=== PATIENT | female | born 1995 | race Caucasian/White ===

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

== ENCOUNTER 2017-03-24 21:09 | Emergency (ER) | payer MEDICAID ==
--- NOTE | 2017-03-24 22:14 | RADIOLOGY REPORT (SQ) ---
EXAM DESCRIPTION: FINGER LEFT COMPLETED DATE/TIME: 03/24/2017 9:47 pm REASON FOR STUDY: PAIN COMPARISON: None. NUMBER OF VIEWS: Three views. TECHNIQUE: AP, lateral, and oblique images acquired of the left fingers LIMITATIONS: None. FINDINGS: MINERALIZATION: Normal. BONES: No acute fracture or dislocation. No worrisome bone lesions. SOFT TISSUES: No soft tissue swelling. No foreign body. OTHER: No other significant finding. IMPRESSION: NO RADIOGRAPHIC EVIDENCE OF ACUTE INJURY. COMMENT: SITE OF TRAUMA/COMPLAINT MARKED/STAMP COMPLETED: No TECHNICAL DOCUMENTATION: JOB ID: [id number] [employer]- All Rights Reserved
--- NOTE | 2017-03-24 22:47 | ER Document Report ---
ED Hand/Wrist Injury - General Chief Complaint: Finger Injury Stated Complaint: LEFT FINGER PAIN Time Seen by Provider: 03/24/17 22:46 Notes: Patient is a 21-year-old female, right-handed, works at [employer], presents after she was hammering and hit the dorsal part of her left fifth finger. She noticed swelling. Denies open wounds or any other injuries. TRAVEL OUTSIDE OF THE [place] IN LAST 30 DAYS: No - Related Data Allergies/Adverse Reactions: No Known Allergies Allergy (Verified 10/03/16 06:44) Past Medical History - General Information source: Patient - Social History Smoking Status: Unknown if Ever Smoked Family History: None Patient has suicidal ideation: No Patient has homicidal ideation: No Pulmonary Medical History: Denies: Hx Asthma Renal/ Medical History: Denies: Hx Peritoneal Dialysis Traumatic Medical History: Reports: Hx Fractures - Immunizations Immunizations up to date: Yes Hx Diphtheria, Pertussis, Tetanus Vaccination: Yes Hx Pneumococcal Vaccination: 10/20/10 Review of Systems - Review of Systems Constitutional: denies: Chills, Fever Respiratory: denies: Cough, Short of breath Gastrointestinal: denies: Abdominal pain, Vomiting Skin: denies: Lesions, Rash Hematologic/Lymphatic: denies: Anemia, Easy bleeding Neurological/Psychological: denies: Paralysis, Numbness Physical Exam - Vital signs Vitals: Temp Pulse Resp BP Pulse Ox 98.2 F 88 16 154/65 H 98 03/24/17 21:14 03/24/17 21:14 03/24/17 21:14 03/24/17 21:14 03/24/17 21:14 - Notes Notes: PHYSICAL EXAMINATION: GENERAL: Well-appearing, well-nourished and in no acute distress. HEAD: Atraumatic, normocephalic. EYES: Pupils equal round and reactive to light, extraocular movements intact, sclera anicteric, conjunctiva are normal. ENT: nares patent, oropharynx clear without exudates. Moist mucous membranes. NECK: Normal range of motion, supple without lymphadenopathy LUNGS: Breath sounds clear to auscultation bilaterally and equal. No wheezes rales or rhonchi. HEART: Regular rate and rhythm without murmurs ABDOMEN: Soft, nontender, normoactive bowel sounds. No guarding, no rebound. No masses appreciated. EXTREMITIES: Mild swelling and tenderness over left dorsal surface of pinky finger, brisk capillary refill. Normal range of motion, no pitting or edema. No cyanosis. NEUROLOGICAL: Cranial nerves grossly intact. Normal speech, normal gait. Normal sensory and motor exams. PSYCH: Normal mood, normal affect. SKIN: Warm, Dry, normal turgor, no rashes or lesions noted. Course - Re-evaluation Re-evalutation: X-ray does not show any acute fractures. Given contusion instructions and she understands. - Vital Signs Vital signs: Temp Pulse Resp BP Pulse Ox 98.2 F 64 20 117/66 100 03/24/17 21:14 03/24/17 22:59 03/24/17 22:59 03/24/17 22:59 03/24/17 22:59 Discharge - Discharge Clinical Impression: Finger contusion Qualifiers: Encounter type: initial encounter Finger: little finger Damage to nail status: without damage Laterality: left Qualified Code(s): S60.052A - Contusion of left little finger without damage to nail, initial encounter Condition: Good Disposition: HOME, SELF-CARE Additional Instructions: Contusion Your injury has resulted in a contusion -- a crushing of the deep tissues. No injury to important structures was detected during the physician's exam. Contusions vary in the amount of pain they cause, and in the length of time required for healing. Typically, the area will become bruised, and will remain painful to touch for two or three weeks. However, most patients are back to working and playing within a few days. After the initial period of rest and cold-packs, your symptoms (together with the doctor's recommendations) will determine how rapidly you can get back to full activity. Usually this means "do what feels okay, but don't do things that hurt." If re-examination was recommended, it's important to follow up as instructed. Call the doctor or return any time if pain increases, if swelling becomes severe, if you develop numbness or weakness in an injured extremity, or if any other alarming symptoms occur.
[2017-03-24 23:02] VITALS: BP 117/66
== END 2017-03-24 23:02 | disposition home or self-care (01) ==
LOC: ER 21:09
DX: S60.052A Contusion of left little finger without damage to nail, initial encounter (principal); W27.8XXA Contact with other nonpowered hand tool, initial encounter; Y93.89 Activity, other specified
CPT/HCPCS: 99283

== ENCOUNTER 2017-10-08 21:52 | Emergency (ER) | payer MEDICAID ==
[2017-10-08 23:51] LABS: ABSOLUTE EOSINOPHILS # (AUTO) 0.1 10^3/uL (0.0-0.6); ABSOLUTE LYMPHOCYTES (AUTO) 2.3 10^3/uL (0.5-4.7); ABSOLUTE NEUT (AUTO) 5.6 10^3/uL (1.7-8.2); BASOPHILS % (AUTO) 0.3 % (0-2); HEMATOCRIT 34.3 % (36.0-47.0); HGB HCT DIFFERENCE 1.7; LYMPHOCYTES % (AUTO) 25.8 % (13-45); MEAN CORPUSCULAR HEMOGLOBIN 29.3 pg (27.0-33.4); MEAN CORPUSCULAR HGB CONC 34.9 g/dL (32.0-36.0); MEAN CORPUSCULAR VOLUME 84 fl (80-97); MONOCYTES % (AUTO) 11.2 % (3-13); RED BLOOD COUNT 4.08 10^6/uL (3.72-5.28); RED CELL DISTRIBUTION WIDTH 13.3 % (11.5-14.0); SEGMENTED NEUTROPHILS % (AUTO) 61.7 % (42-78); WHITE BLOOD COUNT 9.1 10^3/uL (4.0-10.5)
[2017-10-08 23:53] LABS: APPEARANCE,URINE CLEAR; BILIRUBIN,URINE NEGATIVE (NEGATIVE); GLUCOSE, URINE NEGATIVE (NEGATIVE); KETONES,URINE NEGATIVE (NEGATIVE); LEUKOCYTE ESTERASE,URINE NEGATIVE (NEGATIVE); NITRITE,URINE NEGATIVE (NEGATIVE); PROTEIN,URINE NEGATIVE (NEGATIVE); URINE SPECIFIC GRAVITY 1.016; UROBILINOGEN,URINE NEGATIVE mg/dL (<2.0)
--- NOTE | 2017-10-09 01:28 | ER Document Report ---
ED General - General Chief Complaint: Vag Bleeding, +preg <12wks Stated Complaint: VAGINAL BLEEDING Time Seen by Provider: 10/09/17 01:15 Notes: Patient is a 21-year-old at 13 weeks by LMP who presents with 24 hours of vaginal bleeding as well as lower abdominal cramping. The pain in her lower abdomen is described as an intermittent, cramping, moderate discomfort. Nothing improves or worsens the pain. She denies any history of similar pain during this but notes that she has had intermittent vaginal spotting throughout the duration of this . She states when she was living [place] a different [place] she had an ultrasound performed at 7 weeks that showed an abnormal gestational sac and she was informed that this may be an abnormal . However she has not yet had a follow-up to that ultrasound. She has not followed up with her [employer]ANT [employer] regarding today's concerns. She denies any fever or constitutional symptoms TRAVEL OUTSIDE OF THE [place] IN LAST 30 DAYS: No - Related Data Allergies/Adverse Reactions: No Known Allergies Allergy (Verified 10/03/16 06:44) Past Medical History - General Information source: Patient - Social History Smoking Status: Never Smoker Frequency of alcohol use: None Drug Abuse: None Family History: Reviewed & Not Pertinent Pulmonary Medical History: Denies: Hx Asthma Renal/ Medical History: Denies: Hx Peritoneal Dialysis Traumatic Medical History: Reports: Hx Fractures - Immunizations Immunizations up to date: Yes Hx Diphtheria, Pertussis, Tetanus Vaccination: Yes Hx Pneumococcal Vaccination: 10/20/10 Review of Systems - Review of Systems Notes: Constitutional: Negative for fever. HENT: Negative for sore throat. Eyes: Negative for visual changes. Cardiovascular: Negative for chest pain. Respiratory: Negative for shortness of breath. Gastrointestinal: Positive for lower abdominal pain Genitourinary: Positive for vaginal bleeding Musculoskeletal: Negative for back pain. Skin: Negative for rash. Neurological: Negative for headaches, weakness or numbness. 10 point ROS negative except as marked above and in HPI. Physical Exam - Vital signs Vitals: Temp Pulse BP Pulse Ox 98.8 F 78 133/64 H 100 10/08/17 22:03 10/08/17 22:03 10/08/17 22:03 10/08/17 22:03 Interpretation: Normal Notes: PHYSICAL EXAMINATION: GENERAL: Well-appearing, well-nourished and in no acute distress. HEAD: Atraumatic, normocephalic. EYES: Pupils equal round and reactive to light, extraocular movements intact, sclera anicteric, conjunctiva are normal. ENT: nares patent, oropharynx clear without exudates. Moist mucous membranes. NECK: Normal range of motion, supple without lymphadenopathy LUNGS: Breath sounds clear to auscultation bilaterally and equal. No wheezes rales or rhonchi. HEART: Regular rate and rhythm without murmurs ABDOMEN: Soft, nontender, normoactive bowel sounds. No guarding, no rebound. No masses appreciated. EXTREMITIES: Normal range of motion, no pitting or edema. No cyanosis. NEUROLOGICAL: No focal neurological deficits. Moves all extremities spontaneously and on command. PSYCH: Normal mood, normal affect. SKIN: Warm, Dry, normal turgor, no rashes or lesions noted. Course - Re-evaluation Re-evalutation: 10/09/17 01:27 Patient presents with vaginal bleeding in the setting of a possible although apparently has had an ultrasound that showed an abnormal gestational sac. On a trans-abdominal ultrasound the bedside I am unable to visualize any evidence of an intrauterine gestation at this time although there is some blood inside the uterus and the uterus appears larger than would be expected for a non individual. I suspect that the patient is having an ongoing spontaneous . Will send for formal transvaginal ultrasound and reassess 10/09/17 03:23 Transvaginal ultrasound is also unable to visualize any evidence of an intrauterine and patient's hCG level is only 16. This is consistent with demise and missed . I have informed the patient of these findings and of instructed that she will need to follow-up in the women's clinic for recheck her hCG and likely repeat ultrasound in the next 48 hours. She no longer has any additional vaginal bleeding. No abdominal pain. At this time will discharge with return precautions and follow-up recommendations. Verbal discharge instructions given a the bedside and opportunity for questions given. Medication warnings reviewed. Patient is in agreement with this plan and has verbalized understanding of return precautions and the need for primary care follow-up in the next 24-72 hours. - Vital Signs Vital signs: Temp Pulse Resp BP Pulse Ox 98.8 F 78 133/64 H 100 10/08/17 22:03 10/08/17 22:03 10/08/17 22:03 10/08/17 22:03 - Laboratory Result Diagrams: 10/08/17 23:20 Laboratory results interpreted by me: 10/08/17 10/08/17 10/08/17 23:20 23:20 23:25 Hct 34.3 L Beta HCG, Quant 16.25 H Urine Blood LARGE H - Diagnostic Test Radiology reviewed: Reports reviewed Discharge - Discharge Clinical Impression: Spontaneous , Vaginal bleeding Condition: Good Disposition: HOME, SELF-CARE Additional Instructions: You need to return to the ED or the women's health clinic in 48 hours for a recheck of your hormone level. The ultrasound and you labs suggest that you have likely had a spontaneous miscarriage. Please return if you develop severe abdominal pain, bleeding that goes through more than 2 pads for more than 2 hours, pass out, or have any other symptoms that are concerning to you. Please follow-up closely with your OBGYN regarding todays visit. Referrals: VENU ROCK MD [ACTIVE STAFF] - 10/10/17
[2017-10-09 01:40] LABS: ADD ON TESTING BLD IN LAB ACKNOWLEDGE
--- NOTE | 2017-10-09 02:57 | RADIOLOGY REPORT (SQ) ---
EXAM DESCRIPTION: U/S OB TRANSVAGINAL W/O DOP CLINICAL HISTORY: 21 years, Female, No visualized IUP on bedside ultrasound COMPARISON: None. TECHNIQUE: Transvaginal. LIMITATIONS: None. FINDINGS: No intrauterine gestation is identified. There is heterogeneous thickening of the endometrial cavity measuring 2.3 cm with minimal vascularity on color Doppler sonogram. 4.9 cm left ovary contains a 4.5 cm complex cystic component. Vascularity of the left ovary is demonstrated. Right ovary is not visualized. No significant free fluid. No significant free fluid. IMPRESSION: No viable intrauterine gestation is identified. Complex 4.5 cm cystic component of the left ovary may indicate a complex corpus luteal cyst. Differential diagnosis includes occult early viable gestation, or gestational loss with retained products of conception. Cannot exclude ectopic gestation or 4.5 cm left adnexal neoplasm/endometrioma. Consider laboratory/sonographic surveillance within 48 to 72 hours. [employer]- All Rights Reserved
[2017-10-09 04:13] VITALS: BP 121/75
== END 2017-10-09 04:12 | disposition home or self-care (01) ==
LOC: ER 21:52
DX: O03.9 Complete or unspecified spontaneous abortion without complication (principal)
CPT/HCPCS: 99284; 86900; 86901; 36415; 86850; 84702; 85025; 81001; 76817; J2790

== ENCOUNTER 2018-03-25 13:06 | Emergency (ER) | payer MEDICAID ==
--- NOTE | 2018-03-25 14:17 | ER Document Report ---
ED ENT - General Chief Complaint: Flu Symptoms Stated Complaint: FEVER Time Seen by Provider: 03/25/18 13:48 Mode of Arrival: Ambulatory Information source: Patient Notes: 22-year-old female presents to ED for complaint of body aches fever and right wrist pain and swelling with a bruise times a week. She states that the fever was 5 days ago but she had a sore throat since then. She states she has a runny nose and it is becoming more difficult to swallow. TRAVEL OUTSIDE OF THE [place] IN LAST 30 DAYS: No - HPI Patient complains to provider of: Nose problem, Throat problem Onset: Last week Onset/Duration: Gradual, Worse Quality of pain: Achy Severity: Moderate Pain Level: 4 Context: Recent Illness Location of pain: Nose, Sinus, Throat Associated symptoms: Fever - last week, Runny nose, Sinus pain, Sinus drainage, Sore throat Similar symptoms previously: Yes Recently seen / treated by doctor: No - Related Data Allergies/Adverse Reactions: No Known Allergies Allergy (Verified 03/25/18 13:07) Past Medical History - General Information source: Patient - Social History Smoking Status: Never Smoker Cigarette use (# per day): No Chew tobacco use (# tins/day): No Smoking Education Provided: No Frequency of alcohol use: None Drug Abuse: None Occupation: student Lives with: Parents Family History: Reviewed & Not Pertinent Patient has suicidal ideation: No Patient has homicidal ideation: No - Past Medical History Cardiac Medical History: Reports: None Pulmonary Medical History: Reports: None EENT Medical History: Reports: None Neurological Medical History: Reports: None Endocrine Medical History: Reports: None Renal/ Medical History: Reports: None Malignancy Medical History: Reports: None GI Medical History: Reports: None Musculoskeltal Medical History: Reports None Skin Medical History: Reports None Psychiatric Medical History: Reports: None Traumatic Medical History: Reports: Hx Fractures Infectious Medical History: Reports: None Surgical Hx: Negative Past Surgical History: Reports: None - Immunizations Immunizations up to date: Yes Hx Diphtheria, Pertussis, Tetanus Vaccination: Yes Hx Pneumococcal Vaccination: 10/20/10 Review of Systems - Review of Systems Constitutional: Recent illness EENT: No symptoms reported, Nose pain, Nose discharge, Sinus discharge, Throat pain Cardiovascular: No symptoms reported Respiratory: Cough Gastrointestinal: No symptoms reported Genitourinary: No symptoms reported Female Genitourinary: No symptoms reported Musculoskeletal: No symptoms reported Skin: No symptoms reported Hematologic/Lymphatic: No symptoms reported Neurological/Psychological: No symptoms reported -: Yes All other systems reviewed and negative Physical Exam - Vital signs Vitals: Temp Pulse Resp BP Pulse Ox 99.3 F 94 16 138/81 H 99 03/25/18 13:10 03/25/18 13:10 03/25/18 13:10 03/25/18 13:10 03/25/18 13:10 Interpretation: Normal - General General appearance: Appears well, Alert - HEENT Head: Normocephalic, Atraumatic Eyes: Normal Pupils: PERRL Ears: Normal External canal: Normal Tympanic membrane: Normal Sinus: Normal Nasal: Purulent discharge, Swelling Mouth/Lips: Normal Mucous membranes: Normal Pharynx: Erythema, Post nasal drainage, Tonsillar hypertrophy Neck: Anterior cervical chain - Respiratory Respiratory status: No respiratory distress Chest status: Nontender Breath sounds: Nonproductive cough Chest palpation: Normal - Cardiovascular Rhythm: Regular Heart sounds: Normal auscultation Murmur: No - Abdominal Inspection: Normal Distension: No distension Bowel sounds: Normal Tenderness: Nontender Organomegaly: No organomegaly - Back Back: Normal, Nontender - Extremities General upper extremity: Normal inspection, Nontender, Normal color, Normal ROM , Normal temperature General lower extremity: Normal inspection, Nontender, Normal color, Normal ROM , Normal temperature, Normal weight bearing. No: Colby's sign - Neurological Neuro grossly intact: Yes Cognition: Normal Orientation: AAOx4 [place] Coma Scale Eye Opening: Spontaneous Mike Coma Scale Verbal: Oriented Mike Coma Scale Motor: Obeys Commands [place] Coma Scale Total: 15 Speech: Normal Motor strength normal: LUE, RUE, LLE, RLE Sensory: Normal - Psychological Associated symptoms: Normal affect, Normal mood - Skin Skin Temperature: Warm Skin Moisture: Dry Skin Color: Normal Course - Re-evaluation Re-evalutation: 03/25/18 15:21 This young lady was positive for strep. She was treated with penicillin G IM and Decadron for her swollen painful throat. Patient was discharged home to follow-up with her primary doctor. She states she gets frequent strep throat I explained to her that she need to find out up with her primary doctor and have him get a referral for a ENT. - Vital Signs Vital signs: Temp Pulse Resp BP Pulse Ox 99.3 F 94 16 138/81 H 99 03/25/18 13:10 03/25/18 13:10 03/25/18 13:10 03/25/18 13:10 03/25/18 13:10 Discharge - Discharge Clinical Impression: Strep pharyngitis Condition: Stable Disposition: HOME, SELF-CARE Additional Instructions: STREP THROAT: Your sore throat is due to the streptococcus germ (strep throat). Strep throat usually makes you feel quite ill with fever and aches, headache, swollen sore throat, and tender bumps under the angles of the jaw. Strep throat requires antibiotic treatment. Although the sore throat may go away by itself, complications such as rheumatic fever, kidney disease, or throat abscess can occur. We usually prescribe antibiotics by mouth. Be sure to take the medicine until it's gone. If you stop early, the strep may come back. If you are vomiting, are severely ill, or can't remember to take pills, we can give you an antibiotic shot. Take acetaminophen or ibuprofen for pain and fever. Sip frequent clear liquids, or use popsicles or ice chips. Anesthetic sprays or lozenges may help. Make sure the air in the room is not too dry. Avoid using decongestants or antihistamines. Call the doctor if there is no improvement in three days, or if you have difficulty breathing, increasing throat pain, high fever, rash, or frequent vomiting. Penicillins The antibiotic you have received is a member of the penicillin family. This is a very useful class of antibiotics. The particular type of antibiotic chosen for you was determined by the nature of your problem. Penicillins are absorbed best when taken on an empty stomach, and should be taken either a half hour before or two hours after a meal. Some newer medicines of the penicillin class are better taken with food -- if this is the case, the pharmacist will label the medicine to alert you. Penicillins usually have no side effects. However, allergy to penicillins is common. If you have had an allergic reaction to any drug of the penicillin family, you should never take any other penicillin. Notify your doctor at once if you develop hives, itching, swelling, faintness, or shortness of breath. Less serious side effects can include nausea or diarrhea. STEROID MEDICATION: You have been given a medicine of the cortisone/steroid class. This medication is used to control inflammation or allergy. It is usually only given for a short period of time, until the acute process subsides. There are usually no side effects from short-term use of cortisone-like medications. Some persons feel an increased sense of well-being and are not sleepy at bedtime. Long-term use of cortisone medications is best avoided, unless required for a severe condition. If your condition does not remit, or relapses after the course of corticosteroid medication, you should consult your physician. FOLLOW-UP CARE: If you have been referred to a physician for follow-up care, call the physician s office for an appointment as you were instructed or within the next two days. If you experience worsening or a significant change in your symptoms, notify the physician immediately or return to the Emergency Department at any time for re-evaluation. Forms: Elevated Blood Pressure, Return to School Referrals: CATHY SCHULTZ MD [Primary Care Provider] - Follow up as needed
[2018-03-25] MEDS ORDERED: DEXAMETHASONE SOD PHOS INJ 10 MG/1 ML VIAL IM ONE (14:58)
[2018-03-25] MEDS ORDERED: PENICILLIN G BENZATHINE 1.2 MILLION UNIT/2 ML DISP.SYRIN IM ONE (14:58)
[2018-03-25 15:54] VITALS: BP 132/87
== END 2018-03-25 15:54 | disposition home or self-care (01) ==
LOC: ER 13:06
DX: J02.0 Streptococcal pharyngitis (principal); R50.9 Fever, unspecified; M79.1 Myalgia; M25.531 Pain in right wrist
CPT/HCPCS: 99283; 96372; 36415; 87880; 86308; J0561; J1100

== ENCOUNTER 2018-06-24 06:35 | Day surgery (SDC) | payer MEDICAID ==
[2018-06-24] MEDS ORDERED: BUPIVACAINE HCL 0.5%/EPI 1:200000 INJ 1.8 ML CARTRIDGE ONE (07:08)
[2018-06-24] MEDS ORDERED: OXYMETAZOLINE HCL 0.05% NASAL SPRAY 15 ML BOTTLE ONE (07:09)
[2018-06-24] MEDS ORDERED: ONDANSETRON HCL INJ/PF 4 MG/2 ML SDV ONE (07:16)
[2018-06-24] MEDS ORDERED: HYDROMORPHONE HCL INJ/PF 2 MG/ML AMPULE ONE (07:17)
[2018-06-24] MEDS ORDERED: FENTANYL CITRATE INJ/PF 100 MCG/2 ML AMPUL ONE (07:17)
[2018-06-24] MEDS ORDERED: MIDAZOLAM 2 MG/2 ML INJ ONE (07:17)
[2018-06-24] MEDS ORDERED: PROPOFOL INJ 200 MG/20 ML VIAL IV ONE (07:17)
[2018-06-24] MEDS ORDERED: DEXAMETHASONE SOD PHOS INJ 10 MG/1 ML VIAL ONE (07:17)
[2018-06-24] MEDS ORDERED: SUCCINYLCHOLINE CHLORIDE INJ 200 MG/10 ML VIAL ONE (07:18)
[2018-06-24] MEDS ORDERED: ACETAMINOPHEN 1,000 MG/100 ML RTUPB IV ONE (07:18)
--- NOTE | 2018-06-25 11:01 | SURGICARE OPERATIVE REPORT E ---
[facility] Operative Report NAME: OREN VANN AGE: 22Y DATE OF SURGERY: 06/24/2018 ROOM: PREOPERATIVE DIAGNOSES: 1. ACUTE RECURRENT TONSILLITIS. 2. CHRONIC TONSILLITIS. 3. BILATERAL TONSILLAR HYPERTROPHY. POSTOPERATIVE DIAGNOSES: 1. ACUTE RECURRENT TONSILLITIS. 2. CHRONIC TONSILLITIS. 3. BILATERAL TONSILLAR HYPERTROPHY. OPERATION PERFORMED: Bilateral tonsillectomy. Patient age greater than 12. SURGEON: RENY ALEMAN D.O. ANESTHETIC: General endotracheal tube. ANESTHESIA STAFF: Todd Zhong CRNA ESTIMATED BLOOD LOSS: 10 mL. IV FLUIDS: 800 mL. COMPLICATIONS: None. DRAINS: None. SPONGE COUNT: Verified. MATERIALS FORWARDED SPECIMEN: Left and right tonsillar tissue. FINDINGS: 1. The tonsils were noted to be 2 to 3+ in size, were cryptic in appearance, and were with tonsillar debris present bilateral. 2. The soft palatal tissues were redundant in nature and the uvula was unremarkable in appearance. INDICATIONS: This is a 22-year-old female patient who was seen and evaluated in the [facility] office. The patient had been referred for and she complained of a history of acute recurrent tonsillitis episodes occurring throughout each year, treated with antibiotics. These episodes have been occurring each year over the years. With the episodes, the patient experiences significant sore throat, discomfort, and poor p.o. intake. The patient also has a history of symptoms consistent with chronic tonsillitis over the years with history consistent with keratosis pharyngeus. Clinically, the patient is also noted to have tonsillar hypertrophy and she notes that when she has an acute tonsillitis episode, that her tonsils significantly swell and are problematic. After extensive discussion with the patient, recommendation and plan was to proceed with a tonsillectomy. The procedure and all of its risks and complications were all discussed in detail with the patient. She voiced an understanding of the described surgical plan, agreed to proceed, and consent was obtained. PROCEDURE: The patient was taken to the main operating room and placed on the operating room table in the supine position. Appropriate monitors were placed. Using mask and IV access, general anesthesia was induced. The patient was next transorally intubated without difficulty. The patient was rotated 90 degrees and positioned for tonsil surgery. The patient's lips, teeth, tongue and inside of the mouth were inspected and noted to be without defects. There was a mouth gag inserted. It was opened, and the patient was placed into suspension. There was a soft catheter placed through the patient's nose that was used to suspend the soft palate. Findings are as noted above. At this point, the plasma J-Hook device was used to dissect and remove tonsillar tissue on each side. This device was also used to provide adequate hemostasis. Saline irritation was performed and suctioned. There was adequate hemostasis noted. The soft catheter was next released and removed from the patient's nose. The mouth gag was removed from the patient's mouth without difficulty. There was no damage to the lips, teeth, tongue, gums, or inside of the mouth. The patient was then returned to the anesthesia staff and was allowed to emerge from general anesthesia. The patient was extubated in the main operating room and was then transported to the post-anesthesia recovery unit in stable condition. There were no complications. DICTATING PHYSICIAN: RENY ALEMAN D.O. [id number] PHY#: [id number] ID: [id number] JOB#: [id number] ACCT: [id number] cc:RENY ALEMAN D.O. > MTDD
== END 2018-06-24 10:00 | disposition home or self-care (01) ==
LOC: SC 06:35
PROVIDERS: ATTEND Otolaryngology
DX: J35.1 Hypertrophy of tonsils (principal); J30.9 Allergic rhinitis, unspecified; J34.3 Hypertrophy of nasal turbinates; R06.83 Snoring
CPT/HCPCS: 36415; 86003 ×24; 82785; 88304 ×2; 42826; J2250; J3490; J3010; J1170; J0330; J2405; J2704; J1100; J0131; 170

== ENCOUNTER 2018-10-05 09:41 | Emergency (ER) | payer MEDICAID ==
[2018-10-05] MEDS ORDERED: ACETAMINOPHEN 325 MG TABLET PO ONE (10:02)
[2018-10-05] MEDS ORDERED: ONDANSETRON 4 MG TAB.RAPDIS PO ONE (10:02)
--- NOTE | 2018-10-05 10:03 | ER Document Report ---
ED General - General Chief Complaint: Abdominal Pain Stated Complaint: ABDOMINAL PAIN Time Seen by Provider: 10/05/18 09:54 Mode of Arrival: Ambulatory Information source: Patient Notes: 22-year-old female with history of chronic headaches presents with suprapubic abdominal cramping that started approximately 10 days prior to arrival. Patient describes it as intermittent, mild and not associated with dysuria, hematuria or vaginal discharge. Patient has had associated nausea and right- sided headache. Headache is described as throbbing, intermittent and not relieved with ibuprofen. Patient denies any head injury. Patient does report her last menstrual period as being 20 August 2018. Patient did take a home test 1 week ago which was negative. She does have a history of reported miscarriage 1 year ago. Patient is sexually active but states that she uses both condoms and control. Denies history of sexually transmitted disease. Patient has had recent negative, STD testing in June 2018. TRAVEL OUTSIDE OF THE [place] IN LAST 30 DAYS: No - HPI Onset: Last week Onset/Duration: Gradual, Intermittent, Persistent Quality of pain: Cramping Severity: Moderate Associated symptoms: Nausea. denies: Chills, Diarrhea, Fever, Vomiting, Shortness of breath Exacerbated by: Denies, Standing Similar symptoms previously: No Recently seen / treated by doctor: No - Related Data Allergies/Adverse Reactions: No Known Allergies Allergy (Verified 10/05/18 09:41) Past Medical History - General Information source: Patient, [facility] Records - Social History Smoking Status: Never Smoker Frequency of alcohol use: None Drug Abuse: None Lives with: Family Family History: Reviewed & Not Pertinent Patient has suicidal ideation: No Patient has homicidal ideation: No - Past Medical History Cardiac Medical History: Denies: Hx Heart Attack, Hx Hypertension Pulmonary Medical History: Denies: Hx Asthma Neurological Medical History: Denies: Hx Cerebrovascular Accident, Hx Seizures Renal/ Medical History: Denies: Hx Peritoneal Dialysis GI Medical History: Denies: Hx Hepatitis, Hx Hiatal Hernia, Hx Ulcer Traumatic Medical History: Reports: Hx Fractures Infectious Medical History: Denies: Hx Hepatitis Past Surgical History: Denies: Hx Mastectomy, Hx Open Heart Surgery, Hx Pacemaker - Immunizations Immunizations up to date: Yes Hx Diphtheria, Pertussis, Tetanus Vaccination: Yes Hx Pneumococcal Vaccination: 10/20/10 Review of Systems - Review of Systems Constitutional: denies: Chills, Fever, Weakness EENT: denies: Blurred vision Cardiovascular: denies: Chest pain, Palpitations, Dizziness Respiratory: denies: Cough, Short of breath Gastrointestinal: Abdominal pain, Nausea. denies: Vomiting, Constipation, Poor appetite, Poor fluid intake Genitourinary: denies: Dysuria, Discharge, Flank pain, Hematuria Female Genitourinary: Last menstrual period - 08-20-18. denies: Vaginal discharge, Vaginal bleeding, Painful intercourse Musculoskeletal: denies: Back pain Skin: denies: Rash Hematologic/Lymphatic: No symptoms reported Neurological/Psychological: Headaches. denies: Lost consciousness -: Yes All other systems reviewed and negative Physical Exam - Vital signs Vitals: Temp Pulse Resp BP Pulse Ox 98.3 F 88 20 132/71 H 100 10/05/18 09:45 10/05/18 09:45 10/05/18 09:45 10/05/18 09:45 10/05/18 09:45 Interpretation: Normal. No: Tachycardic, Febrile - Notes Notes: PHYSICAL EXAMINATION: GENERAL: Well-appearing, well-nourished and in no acute distress. HEAD: Atraumatic, normocephalic. EYES: Pupils equal round and reactive to light, extraocular movements intact, conjunctiva are normal. ENT: Nares patent, oropharynx clear without exudates. Moist mucous membranes. NECK: Normal range of motion, supple without lymphadenopathy LUNGS: Breath sounds clear to auscultation bilaterally and equal. No wheezes rales or rhonchi. HEART: Regular rate and rhythm without murmurs ABDOMEN: Soft, nontender, nondistended abdomen. No guarding, no rebound. No masses appreciated. No right lower quadrant or left lower quadrant tenderness with palpation. Female : Swabs obtained for wet mount, gonorrhea and chlamydia. Musculoskeletal: Normal range of motion, no pitting or edema. No cyanosis. NEUROLOGICAL: Cranial nerves grossly intact. Normal speech, normal gait. Normal sensory, motor exams PSYCH: Normal mood, normal affect. SKIN: Warm, Dry, normal turgor, no rashes or lesions noted. Course - Re-evaluation Re-evalutation: Laboratory 10/05/18 10/05/18 10/05/18 10:15 10:15 10:20 WBC 5.1 RBC 4.78 Hgb 13.8 Hct 40.7 MCV 85 MCH 29.0 MCHC 34.0 RDW 12.7 Plt Count 313 Seg Neutrophils % 63.8 Lymphocytes % 27.8 Monocytes % 7.1 Eosinophils % 1.1 Basophils % 0.2 Absolute Neutrophils 3.3 Absolute Lymphocytes 1.4 Absolute Monocytes 0.4 Absolute Eosinophils 0.1 Absolute Basophils 0.0 Sodium 142.0 Potassium 4.8 Chloride 106 Carbon Dioxide 26 Anion Gap 10 BUN 14 Creatinine 0.80 Est GFR ( Amer) > 60 Est GFR (Non-Af Amer) > 60 Glucose 97 Calcium 10.1 Total Bilirubin 0.7 Direct Bilirubin 0.4 Neonat Total Bilirubin Not Reportable Neonat Direct Bilirubin Not Reportable Neonat Indirect Bili Not Reportable AST 15 ALT 12 Alkaline Phosphatase 50 Total Protein 7.2 Albumin 4.4 Urine HCG, Qual NEGATIVE Trichomonas (Wet Prep) Vaginal WBC Vaginal RBC Vaginal Yeast 10/05/18 10:20 WBC RBC Hgb Hct MCV MCH MCHC RDW Plt Count Seg Neutrophils % Lymphocytes % Monocytes % Eosinophils % Basophils % Absolute Neutrophils Absolute Lymphocytes Absolute Monocytes Absolute Eosinophils Absolute Basophils Sodium Potassium Chloride Carbon Dioxide Anion Gap BUN Creatinine Est GFR ( Amer) Est GFR (Non-Af Amer) Glucose Calcium Total Bilirubin Direct Bilirubin Neonat Total Bilirubin Neonat Direct Bilirubin Neonat Indirect Bili AST ALT Alkaline Phosphatase Total Protein Albumin Urine HCG, Qual Trichomonas (Wet Prep) NO TRICHOMONAS SEEN Vaginal WBC RARE WBCS SEEN Vaginal RBC NO RBCS SEEN Vaginal Yeast NO YEAST SEEN Temp Pulse Resp BP Pulse Ox 98.3 F 88 20 132/71 H 100 10/05/18 09:45 10/05/18 09:45 10/05/18 09:45 10/05/18 09:45 10/05/18 09:45 10/05/18 11:00 22-year-old female presents with suprapubic abdominal pain that has been present for approximately 10 days. She has associated nausea and headache. Patient's vitals were reviewed upon arrival. She is afebrile, not tachycardic or hypoxic. She does not appear toxic or dehydrated. She is in no acute distress. Patient with a benign abdominal exam. Patient given Zofran and Tylenol for headache and nausea. Urine hCG negative. Patient does report that she recently started a new control pill which could be the reason for her irregular period this month. Patient reevaluated while waiting for urinalysis. She reports improvement of her headache and nausea. She is declining Toradol. 10/05/18 11:14 Patient reevaluated and is now complaining of return of abdominal cramping. Agrees to take Toradol. CBC, CMP unremarkable. Urinalysis not consistent with infection. HCG negative. Wet prep without abnormality. Gonorrhea and chlamydia negative. On reevaluation patient reports resolution of headache, abdominal pain. Reviewed lab findings with the patient. She was reassured. Cramping may be the onset of her period. Patient was evaluated and treated as appropriate for the patient's presenting symptoms and complaint, with consideration of any critical or life threatening conditions that may be associated with their obtained history and exam as noted above. All results were discussed with patient. Patient provided the opportunity to ask questions, and express concerns. Patient was educated on treatments based on their presumed diagnosis as noted above. At this time we will discharge the patient with return precautions and follow-up recommendations. Verbal discharge instructions given a the bedside. Medication warnings reviewed. Patient is in agreement with this plan and has verbalized understanding of return precautions. After careful consideration I feel that that patient can be safely discharged from the emergency department, they were advised to followup with a primary care physician in 2-3 days. Dictation on this chart was performed using voice recognition software and may result in unintended grammatical, spelling, syntax or errors. 10/05/18 19:33 10/05/18 19:37 - Vital Signs Vital signs: Temp Pulse Resp BP Pulse Ox 98.3 F 88 20 123/67 100 10/05/18 09:45 10/05/18 09:45 10/05/18 09:45 10/05/18 12:37 10/05/18 09:45 - Laboratory Result Diagrams: 10/05/18 10:15 10/05/18 10:15 Discharge - Discharge Clinical Impression: Abdominal cramping, Nausea Headache Qualifiers: Headache type: unspecified Headache chronicity pattern: unspecified pattern Intractability: not intractable Qualified Code(s): R51 - Headache Condition: Good Disposition: HOME, SELF-CARE Instructions: Abdominal Pain ([facility]), Headache ([facility]), Nausea or Vomiting, Nonspecific ([facility]), Observation for Appendicitis ([facility]) Additional Instructions: Your tests indicate that you are not , have a urinary tract infection or a sexually transmitted disease. This abnormal cramping and irregular periods could be due to your control. You have been prescribed Zofran for nausea. You have been seen in the Emergency Department (ED) for abdominal pain. Your evaluation did not identify a clear cause of your symptoms but was generally reassuring. Please follow up with your doctor as soon as possible regarding today's emergent visit and the symptoms that are bothering you. Return to the ED if your abdominal pain worsens or fails to improve, you develop bloody vomiting, bloody diarrhea, you are unable to tolerate fluids due to vomiting, fever greater than 101, or other symptoms that concern you. Prescriptions: Naproxen [Naprosyn] 500 mg PO BID PRN #15 tablet PRN Reason: Abdominal Cramping Ondansetron [Zofran Odt 4 mg Tablet] 1 tab PO Q6H PRN #15 tab.rapdis PRN Reason: For Nausea/Vomiting Forms: Elevated Blood Pressure Referrals: ANH STRONG FNP-C [Primary Care Provider] - Follow up in 3-5 days
[2018-10-05 10:44] LABS: ABSOLUTE EOSINOPHILS # (AUTO) 0.1 10^3/uL (0.0-0.6); ABSOLUTE LYMPHOCYTES (AUTO) 1.4 10^3/uL (0.5-4.7); ABSOLUTE MONOCYTES (AUTO) 0.4 10^3/uL (0.1-1.4); ABSOLUTE NEUT (AUTO) 3.3 10^3/uL (1.7-8.2); BASOPHILS % (AUTO) 0.2 % (0-2); EOSINOPHILS % (AUTO) 1.1 % (0-6); HEMATOCRIT 40.7 % (36.0-47.0); HEMOGLOBIN 13.8 g/dL (12.0-15.5); LYMPHOCYTES % (AUTO) 27.8 % (13-45); MEAN CORPUSCULAR VOLUME 85 fl (80-97); MONOCYTES % (AUTO) 7.1 % (3-13); PLATELET COUNT 313 10^3/uL (150-450); RED BLOOD COUNT 4.78 10^6/uL (3.72-5.28); RED CELL DISTRIBUTION WIDTH 12.7 % (11.5-14.0); SEGMENTED NEUTROPHILS % (AUTO) 63.8 % (42-78); TOTAL CELLS COUNTED % (AUTO) 100 %; WHITE BLOOD COUNT 5.1 10^3/uL (4.0-10.5)
[2018-10-05] MEDS ORDERED: KETOROLAC TROMETHAMINE 60 MG/2 ML SDV IM ONE (10:59)
[2018-10-05 11:06] LABS: T.VAGINALIS (WET MOUNT) NO TRICHOMONAS SEEN
[2018-10-05 11:07] LABS: ALANINE AMINOTRANSFERASE 12 U/L (9-52); ALBUMIN 4.4 g/dL (3.5-5.0); ALKALINE PHOSPHATASE 50 U/L (38-126); ANION GAP 10 (5-19); ASPARTATE AMINO TRANSFERASE 15 U/L (14-36); BILIRUBIN,DIRECT 0.4 mg/dL (0.0-0.4); BILIRUBIN,TOTAL 0.7 mg/dL (0.2-1.3); BLOOD UREA NITROGEN 14 mg/dL (7-20); CALCIUM 10.1 mg/dL (8.4-10.2); CARBON DIOXIDE 26 mmol/L (22-30); CHLORIDE 106 mmol/L (98-107); GLUCOSE 97 mg/dL (75-110); POTASSIUM 4.8 mmol/L (3.6-5.0); TOTAL PROTEIN 7.2 g/dL (6.3-8.2)
[2018-10-05 11:07] LABS: RBCS (WET MOUNT) NO RBCS SEEN; WBCS (WET MOUNT) RARE WBCS SEEN; YEAST (WET MOUNT) NO YEAST SEEN
[2018-10-05 12:26] LABS: CHLAM PCR NOT DETECTED (NOT DETECT); GON PCR NOT DETECTED (NOT DETECT)
[2018-10-05 12:27] LABS: APPEARANCE,URINE CLEAR; BILIRUBIN,URINE NEGATIVE (NEGATIVE); COLOR,URINE YELLOW; GLUCOSE, URINE NEGATIVE (NEGATIVE); KETONES,URINE NEGATIVE (NEGATIVE); LEUKOCYTE ESTERASE,URINE NEGATIVE (NEGATIVE); NITRITE,URINE NEGATIVE (NEGATIVE); PROTEIN,URINE NEGATIVE (NEGATIVE); URINE SPECIFIC GRAVITY 1.014; UROBILINOGEN,URINE NEGATIVE mg/dL (<2.0)
[2018-10-05 12:50] VITALS: BP 123/67
== END 2018-10-05 12:49 | disposition home or self-care (01) ==
LOC: ER 09:41
DX: R10.30 Lower abdominal pain, unspecified (principal); R51 Headache; R11.0 Nausea; N92.6 Irregular menstruation, unspecified; Z87.59 Personal history of other complications of pregnancy, childbirth and the puerperium
CPT/HCPCS: 99284; 96372; 36415; 87210; 85025; 81025; 80053; 81001; 87491; 87591; J3490; J1885; S0119

== ENCOUNTER 2018-10-18 13:50 | Emergency (ER) | payer MEDICAID ==
--- NOTE | 2018-10-18 15:03 | ER Document Report ---
ED Extremity Problem, Lower - General Chief Complaint: Ankle Pain Stated Complaint: RIGHT ANKLE PAIN, SWELLING Time Seen by Provider: 10/18/18 14:21 Notes: 22-year-old female presents to the ER with ankle pain times 1 week. Patient twisted her ankle about a week ago. She complains of right ankle pain and swelling. Patient denies any head or neck injuries denies loss of consciousness. Denies chest pain or shortness of breath denies abdominal pain denies any open wounds or bleeding. Complains of throbbing severe pain throughout the week. Was hoping it would get better but has not presents here to the ER. TRAVEL OUTSIDE OF THE [place] IN LAST 30 DAYS: No - Related Data Allergies/Adverse Reactions: No Known Allergies Allergy (Verified 10/18/18 13:50) Past Medical History - Social History Smoking Status: Never Smoker Chew tobacco use (# tins/day): No Frequency of alcohol use: None Drug Abuse: None Family History: Reviewed & Not Pertinent Patient has suicidal ideation: No Patient has homicidal ideation: No - Past Medical History Cardiac Medical History: Denies: Hx Heart Attack, Hx Hypertension Pulmonary Medical History: Denies: Hx Asthma Neurological Medical History: Denies: Hx Cerebrovascular Accident, Hx Seizures Renal/ Medical History: Denies: Hx Peritoneal Dialysis GI Medical History: Denies: Hx Hepatitis, Hx Hiatal Hernia, Hx Ulcer Traumatic Medical History: Reports: Hx Fractures Infectious Medical History: Denies: Hx Hepatitis Past Surgical History: Reports: Hx Tonsillectomy - jun 2018. Denies: Hx Mastectomy, Hx Open Heart Surgery, Hx Pacemaker - Immunizations Immunizations up to date: Yes Hx Diphtheria, Pertussis, Tetanus Vaccination: Yes Hx Pneumococcal Vaccination: 10/20/10 Review of Systems - Review of Systems Constitutional: denies: Chills, Fever Gastrointestinal: denies: Nausea, Vomiting Genitourinary: denies: Dysuria Musculoskeletal: Joint pain, Joint swelling Neurological/Psychological: denies: Headaches -: Yes All other systems reviewed and negative Physical Exam - Notes Notes: GENERAL_APPEARANCE: well_nourished, alert, cooperative VITALS: reviewed, see vital signs table. HEAD: no_swelling\tenderness on the head. EYES: PERRL, EOMI, conjunctiva_clear. NOSE: no_nasal_discharge. MOUTH: (-)decreased moisture. NECK: supple, no_neck_tenderness, (-)thyromegaly. BACK: no_back_tenderness. EXTREMITIES: Right ankle has some mild swelling at the lateral malleolus the deltoid ligament is swollen and tender to touch drawer signs of the ankle are negative for strong dorsalis pedis posterior tibial pulses brisk cap refill to nailbeds are noted. SKIN: warm, dry, good_color, no_rash. MENTAL_STATUS: speech_clear, oriented_X_3, normal_affect, responds_appropriately to questions. Course - Re-evaluation Re-evalutation: 10/18/18 15:02 The patient has appears to be a ankle sprain with a deltoid ligament injury. We will x-ray the ankle to look for fractures. No fractures needed We will place the patient in a Aircast and crutches. Follow-up with orthopedics as needed. - Diagnostic Test Radiology reviewed: Reports reviewed Radiology results interpreted by me: 10/18/18 15:29 Ankle X-Ray 10/18/18 14:21 IMPRESSION: Soft tissue injury. Discharge - Discharge Clinical Impression: Right ankle sprain Qualifiers: Encounter type: initial encounter Involved ligament of ankle: deltoid ligament Qualified Code(s): S93.421A - Sprain of deltoid ligament of right ankle, initial encounter Disposition: HOME, SELF-CARE Instructions: Sprained Ankle ([facility]) Prescriptions: Diclofenac Sodium [Voltaren] 75 mg PO BID PRN #20 tablet.dr RIZO Reason: Pain Scale Of 5 Referrals: GRACIE MCCORD FNP-C [Primary Care Provider] - Follow up as needed SHARA JONES MD [ACTIVE STAFF] - Follow up as needed
--- NOTE | 2018-10-18 15:23 | RADIOLOGY REPORT (SQ) ---
EXAM DESCRIPTION: ANKLE RIGHT COMPLETE COMPLETED DATE/TIME: 10/18/2018 3:07 pm REASON FOR STUDY: injury pain COMPARISON: None. NUMBER OF VIEWS: Three views. TECHNIQUE: AP, lateral, and oblique radiographic images acquired of the right ankle. LIMITATIONS: None. FINDINGS: MINERALIZATION: Normal. BONES: No acute fracture or dislocation. No worrisome bone lesions. JOINTS: No effusions. SOFT TISSUES: Lateral swelling. No foreign body. OTHER: No other significant finding. IMPRESSION: Soft tissue injury. TECHNICAL DOCUMENTATION: JOB ID: [id number] [employer]- All Rights Reserved Reading location - IP/workstation name: [email or web address]
== END 2018-10-18 16:17 | disposition home or self-care (01) ==
LOC: ER 13:50
DX: S93.421A Sprain of deltoid ligament of right ankle, initial encounter (principal); M25.571 Pain in right ankle and joints of right foot; X50.0XXA Overexertion from strenuous movement or load, initial encounter
CPT/HCPCS: 99283; 73610; L1902